=== PATIENT | male | born 1935 | race Caucasian/White ===

== ENCOUNTER → 2016-10-23 | Outpatient (CLI) | payer BC ==
[~2016-10-23] MED LIST: DUTA0.5C PO; METH-1305 PO; MULT-190 PO; TAMS0.4C38 PO
[2016-10-23 10:26] LABS: BASO % 0.8 %; BASO ABS # 0.05 K/uL (0-0.2); COMPLETE YES; EOS % 2.8 %; HEMATOCRIT 41.7 % (42-52); IG% 0.3 %; LYMPH ABS # 2.37 K/uL (1.2-3.4); MEAN CELL VOLUME 93.5 fL (80-100); MEAN CORPUSCULAR HGB CONC 35.3 g/dl (32-36); MEAN PLATELET VOLUME 9.4 fL (7.4-10.4); MONO % 9.5 %; NEUT % 47.6 %; PLATELET COUNT 204 K/uL (130-400); RED BLOOD COUNT 4.46 M/uL (4.7-6.1); WHITE BLOOD COUNT 6.08 K/uL (4.8-10.8)
[2016-10-23 10:40] LABS: ESTIMATED AVERAGE GLUCOSE 117 mg/dl; HA1C FLAG Normal (Normal)
[2016-10-23 11:01] LABS: BLOOD UREA NITROGEN 19 mg/dl (7-18); BUN/CREATININE RATIO 19.9 (10-20); CALCIUM 8.8 mg/dl (8.5-10.1); CARBON DIOXIDE 28 mmol/L (21-32); CHLORIDE 109 mmol/L (98-107); CREATININE 0.94 mg/dl (0.60-1.40); GLUCOSE 102 mg/dl (70-99); POTASSIUM 3.9 mmol/L (3.5-5.1); SODIUM 144 mmol/L (136-145)
[2016-10-23 11:13] LABS: CHOLESTEROL 188 mg/dl (0-200); CHOLESTEROL/HDL RATIO 5.1; HDL CHOLESTEROL 37 mg/dl; LDL CHOLESTEROL CALCULATED 105 mg/dl; TRIGLYCERIDES 231 mg/dl (0-150); VERY LOW DENSITY LIPOPROT CALC 46 mg/dl
--- NOTE | 2016-11-09 09:37 | CODING QUERY MEDICAL NECESSITY ---
SUPPORTING DIAGNOSIS NEEDED Dr. Saucedo, A supporting diagnosis is required for the test/procedure performed on this patient in order for us to be reimbursed by the patient's insurance. Please provide a supporting diagnosis for the following test/procedure listed below next to the test name along with your signature. *If there is no additional diagnosis for this patient that would support the following test/procedure please document that below next to the test/procedure. Test(s)/Procedure(s) that require a supporting diagnosis: * [id number] GLYCATED HEMOGLOBIN DIAGNOSIS: DATE OF SERVICE: 10/23/16 Provider Signature: Date: Thank you Hossein Osorio [facility] Information Management Once completed, please kindly fax back to [phone] For questions please call [phone]
== END | disposition home or self-care (01) ==
LOC: C.LAB 09:17
PROVIDERS: ATTEND Internal Medicine
DX: E78.00 Pure hypercholesterolemia, unspecified (principal); R73.9 Hyperglycemia, unspecified

== ENCOUNTER → 2017-03-08 | Outpatient (CLI) | payer BC | END | disposition home or self-care (01) | LOC: C.LAB1850 16:12 | PROVIDERS: ATTEND Urology | DX: N40.1 Benign prostatic hyperplasia with lower urinary tract symptoms (principal) ==

== ENCOUNTER 2018-10-14 10:46 | Observation (INO) ==
--- NOTE | 2018-10-02 12:23 | PAT Medication Instructions ---
Medication Instructions Date of Service October 02, 2018 Home Medications dutasteride 0.5 mg PO QPM methenamine hippurate 1 g PO QPM tamsulosin 0.4 mg PO QPM vit C,J-Gf-agisw-lutein-zeaxan [PreserVision AREDS-2] 1 tab PO BID STOP taking 2 weeks before surgery vit C,Z-Hr-rtmph-lutein-zeaxan [PreserVision AREDS-2] 1 tab PO BID Take morning of surgery NOTHING TO EAT OR DRINK AFTER MIDNIGHT Take evening before surgery dutasteride 0.5 mg PO QPM methenamine hippurate 1 g PO QPM tamsulosin 0.4 mg PO QPM Other Notes If you have any questions please call us at [phone] or [phone] or [phone] or [phone]
--- NOTE | 2018-10-02 12:26 | Anesthesiology Consultation ---
Date of Service October 02, 2018 Assessment & Plan (1) Encounter for pre-operative examination: Chart Review Chart Review: Acceptable Risk for Surgery and Patient seen in Pre Admission Testing Consults Requested none Teaching & Discussion Pre-Anesthesia Teaching/Discussion Notes: Instructed NPO after midnight before surgery, except medications with 15 cc of water. Medication instructions provided according to the PAT guidelines. ASA ASA2 Proposed Anesthesia Anesthesia Type: General Risk / Benefits Reviewed With: PT / POA / Parent / Guardian, Accepts Plan and Informed Consent Obtained History Surgery Operation Date: 10/14/18 12:10 Proposed Procedures p Transurethral Resection Prostate - Olu Givens MD Height/Weight Height: 1.73 m Weight: 72.4 kg Allergies Allergy/AdvReac Type Severity Reaction Status Date / Time No Known Allergies Allergy * Verified 10/14/18 11:12 Medications Home Medications Medication Instructions Recorded Confirmed Last Taken dutasteride 0.5 mg PO QPM 09/26/18 10/14/18 10/12/18 18:00 methenamine hippurate 1 g PO QPM 09/26/18 10/14/18 10/13/18 18:00 tamsulosin 0.4 mg PO QPM 09/26/18 10/14/18 10/13/18 18:00 vit C,Z-Xe-gdcgl-lutein-zeaxan 1 tab PO QAM 09/26/18 10/14/18 10/13/18 08:00 [PreserVision AREDS-2] NPO Date Last Intake of Fluids: 10/13/18 Time Last Intake of Fluids: 20:00 Date Last Intake of Solids: 10/13/18 Time Last Intake of Solids: 20:00 Past Medical History Medical History BPH (benign prostatic hyperplasia) Exercise / Class Metabolic Activity II 4-5 Yardwork/Stairs/Walk up hill (Walk 1-2 miles per day. Play with his dogs. Able to easily climb FOS. Denies CP or SOB. ) Past Surgical History Surgical History History of arthroscopy RIGHT KNEE History of colonoscopy History of herniorrhaphy Bilateral inguinal LEFT - 08/13/13 - MAC #4, ETT #8.0, Grade 2 View History of prostate surgery TURP Hx of cataract surgery BILATERAL S/P ORIF (open reduction internal fixation) fracture RIGHT ANKLE 06/18/12 - ETT #7.5 Past Anesthesia History No Hx of Anesthesia Complications and No Family Hx of Anesthesia Complications History of PONV No Hx of PONV and No Hx of Motion Sickness Social History Smoking Status: Never smoker Smoking cigarettes per day: 0 Do You Dip or Chew Tobacco: No Hx Alcohol Use: No Alcohol Intake Frequency Comment: 0 Hx Substance Use: No substance use type: does not use Review of Systems Patient denies chest pain, shortness of breath, dyspnea on exertion, reflux, cough, wheezing, palpitations. +Joint Pain (Left Hip, Hands) Respiratory: no dyspnea Cardiovascular: no chest pain and no dyspnea on exertion Gastrointestinal: no nausea and no vomiting Physical Exam Vital Signs BP: 116/65 P: 69 R: 16 T: 97.8 SPO2: 97% on RA ENMT Mouth: no TMJ abnormality and no TMJ clicking Thyromental Distance: > or= 3.5 Finger Breadths (4) Mallampati Class: II Neck normal visual inspection and trachea midline; neck extension not limited Respiratory normal respiratory effort Auscultation: lungs clear to auscultation bilaterally Cardiovascular Rate/Rhythm: regular rate and regular rhythm Neurologic moves all extremities Psychiatric Orientation: alert and oriented x 3 Testing Laboratory Results 10/02/18 12:56 10/02/18 12:56 10/02/18 12:56 Blood Type O Positive Antibody Screen NEGATIVE Electrocardiogram Date: 10/02/18 Findings: + NSR @ (62) Left anterior fascicular block Right bundle branch block When compared with ECG of 08/07/13, T wave inversion no longer evident in inferior leads. Chest X-Ray Date: 10/02/18 Findings: + NAD FINDINGS: Cardiac mediastinal and hilar silhouettes are within normal limits. No pneumothorax, pleural effusion, focal airspace consolidation or overt pulmonary edema. Bones of the chest appear grossly intact. IMPRESSION: No acute process. Cervical Spine Date: 08/18/18 FINDINGS: The prevertebral soft tissues are normal. There is 4.5 mm of retrolisthesis of C5 on C6. There is marked C5-6 disc space narrowing. Right- sided neck calcifications are likely atherosclerotic. There are nonspecific calcifications in the left subareolar mandibular region. IMPRESSION: 1. No acute fractures 2. 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
--- NOTE | 2018-10-02 13:26 | XRay Report ---
XR chest Pre-admission PA/Lat HISTORY: 82 years-old Male pat preoperative exam. No acute chest complaints COMPARISON: Chest radiograph 09/11/2010 TECHNIQUE: PA and lateral views of the chest FINDINGS: Cardiac mediastinal and hilar silhouettes are within normal limits. No pneumothorax, pleural effusion , focal airspace consolidation or overt pulmonary edema. Bones of the chest appear grossly intact. IMPRESSION: No acute process. The above report was generated using voice recognition software. It may contain grammatical, syntax o r spelling errors. Electronically signed by: Geovany Orozco M.D. 10/02/2018 1:24 PM
[2018-10-02 14:01] LABS: Basophils # (auto) 0.03 K/uL (0-0.2); Basophils % (auto) 0.6 %; Eosinophils # (auto) 0.23 K/uL (0-0.5); Eosinophils % (auto) 4.5 %; Hematocrit (blood only) 38.6 % (42-52); Hemoglobin 13.7 g/dL (14.0-18.0); Immature Granulocytes # (auto) 0.01 K/uL (0.00-0.02); Immature Granulocytes % (auto) 0.2 %; Lymphocytes # (auto) 1.83 K/uL (1.2-3.4); Lymphocytes % (auto) 36.1 %; Mean Corpuscular Hgb Conc 35.5 g/dL (32-36); Mean Platelet Volume 9.5 fL (7.4-10.4); Monocytes # (auto) 0.42 K/uL (0.11-0.59); Monocytes % (auto) 8.3 %; Neutrophils # (auto) 2.55 K/uL (1.4-6.5); Neutrophils % (auto) 50.3 %; Platelet Count 194 K/uL (130-400); RDW Standard Deviation 44.2 fL (36.4-46.3); Red Blood Count 4.15 M/uL (4.7-6.1); White Blood Count 5.07 K/uL (4.8-10.8)
[2018-10-02 14:16] LABS: BUN Creatinine Ratio 23.5 (10-20); Calcium 9.1 mg/dl (8.5-10.1); Creatinine Clr Calc Pharmacy 58.2 ml/min; Est GFR (African American) 87.7; Est GFR (Non-African American) 75.7; Potassium 3.9 mmol/L (3.5-5.1)
[~2018-10-14 10:46] MED LIST changes: -DUTA0.5C PO; +GENTAMICIN SULFATE 80 MG in DEXTROSE 5% 100 ML IV SCH; +LR 15ML/HR IV SCH; -METH-1305 PO; +MIDAZOLAM HCL 1 MG/ML 2ML VIAL ONE; -MULT-190 PO; -TAMS0.4C38 PO
[2018-10-14] MEDS ORDERED: fentaNYL citrate 100 MCG/2 ML VIAL ONE (10:47)
[2018-10-14] MEDS ORDERED: LIDOCAINE HCL 2% 2 ML VIAL/AMP(20MG/ML) INFIL ONE (10:47)
[2018-10-14] MEDS ORDERED: PROPOFOL IV EMULSION 10 MG/ML 20 ML VIAL IV ONE (10:47)
[2018-10-14] MEDS ORDERED: ONDANSETRON INJ 2 MG/ML 2 ML VIAL ONE (10:47)
[2018-10-14] MEDS ORDERED: PHENYLEPHRINE 100MCG/ML 5ML SYR IV PRN (11:01)
[2018-10-14] MEDS ORDERED: fentaNYL citrate 100 MCG/2 ML VIAL IV PRN (11:01)
[2018-10-14] MEDS ORDERED: HYDROmorphone INJ 1 MG/ML SYRINGE IV PRN (11:01)
[2018-10-14] MEDS ORDERED: ONDANSETRON INJ 2 MG/ML 2 ML VIAL IV PRN (11:01)
[2018-10-14] MEDS ORDERED: ePHEDrine sulfate 50 MG/ML AMP IV PRN (11:01)
[2018-10-14] MEDS ORDERED: ATROPINE SULFATE 0.1 MG/ML 10ML SYR IV PRN (11:01)
--- NOTE | 2018-10-14 12:21 | History & Physical Bridge Note ---
Date of Service October 14, 2018 History & Physical Bridge Note I have examined the patient, reviewed the History & Physical and in the interval since the performance of the History & Physical I have noted the following changes of clinical significance: no changes noted
[2018-10-14] MEDS ORDERED: ePHEDrine sulfate 50 MG/ML AMP ONE (13:08)
[2018-10-14] MEDS ORDERED: SODIUM CHLORIDE 0.9% INJ 10 ML VIAL ONE (13:08)
--- NOTE | 2018-10-14 15:06 | Post Operative Brief Note ---
Immediate Post Op Note v1 Date of Surgery October 14, 2018 Pre & Post Diagnosis Operation Date: 10/14/18 12:10 Pre-Op Diagnosis: Benign Localized Hyperplasia of Prostate Post-Op Diagnosis: Benign Localized Hyperplasia of Prostate Procedure Operation Date: 10/14/18 12:10 Actual Procedures p Transurethral Resection Prostate(Not Applicable) - Olu Givens MD Surgeon Olu Givens MD Transcription none Estimated Blood Loss 100 Findings See Below (large long obstructing gland) Drains Pritchard Catheter
[2018-10-14] MEDS ORDERED: OXYCODONE/ACETAMINOPHEN 5mg/325mg TAB PO PRN (15:17)
--- NOTE | 2018-10-14 16:16 | Anesthesiology Progress Note ---
Date of Service October 14, 2018 Anesthesia Post Procedure Vital Signs Vital Signs: Temp Pulse Pulse Resp BP BP Pulse Ox 10/14/18 16:00 36.2 C L 74 20 140/85 95 10/14/18 15:50 80 21 162/82 H 100 10/14/18 15:40 73 16 145/81 H 99 10/14/18 15:30 79 19 147/75 H 98 10/14/18 15:20 36.3 C L 84 19 150/79 H 100 10/14/18 11:17 36 C L 66 18 158/85 H 96 Transfer of Care Handoff Completed per policy Notes Mental Status: alert / awake / arousable Patient Amnestic to Procedure: Yes Nausea / Vomiting: adequately controlled Pain: adequately controlled Airway Patency, RR, SpO2: stable & adequate BP & HR: stable & adequate Hydration State: stable & adequate Anesthetic Complications: no major complications apparent and Pt Satisfied with anesthetic care
[2018-10-14] MEDS: SODIUM CHLORIDE 0.45 % 1,000 ML IV SCH (18:32)
--- NOTE | 2018-10-15 02:09 | Operative Report ---
DATE OF OPERATION: 10/14/2018 PROCEDURE PERFORMED: TURP. INDICATIONS: The patient is an 82-year-old male with a previous GreenLight laser prostatectomy 10 years ago, he had a massively enlarged prostate, has been on dutasteride. Initially, he was having residuals that apparently were relatively under control until recently did a cystoscopy again confirming he had intravesical portion of his prostate remaining and a large obstructing prostate probably over 100 grams. Recommended that we consider doing a TURP with the understanding that his prostate was quite large and we did the best I could to make sure that he was open and could empty better. DESCRIPTION OF THE PROCEDURE: The patient was taken to the cystoscopy suite where general anesthesia was administered. He had Venodyne stockings placed, prior to this was given gentamicin, he was placed in dorsal lithotomy position and prepped and draped in usual sterile fashion. Upon cystoscopy with 30 and 70 degree lens, did not see any tumors in his bladder and we placed the resectoscope and resected the median lobe initially and then resected the right lateral lobe and then placed a button to control the bleeding on the right side and could see into the bladder, but the left side was still bulging in the middle, left lateral lobe. Using the button, we began the resection on the left side just to control bleeding before using the resectoscope. However, during this procedure, there was a short and the camera was lost. Using the eye piece that was able to control some of the bleeding and do some removal of the prostate with the button. We had a new camera brought into the room. Using this, I used the button to get control of the left side as best I could. I got all the chips out of the bladder and then the procedure, there was a clear channel from the verumontanum into the bladder. Clearly, there could be more tissue that was taken but been resecting for quite a long period of time and given the malfunction of the equipment which took some time to correct approximately 5-10 minutes, I decided to terminate the procedure hoping that the resection will be sufficient to allow the patient to empty more completely. There was no significant bleeding and make sure that all the chips were removed from the bladder and the patient had a 22-Romansh Pritchard catheter with 30 mL balloon placed, was transferred to the recovery room in stable condition with clear urine. I attest to the content of the Intraoperative Record and any orders documented therein. Any exception s are noted below.
[2018-10-15] MEDS: SODIUM CHLORIDE 0.45 % 1,000 ML IV SCH (05:32)
[2018-10-15 08:15] VITALS: BP 124/72; TEMP 97.7; O2SAT 94
--- NOTE | 2018-10-15 10:36 | Urology Progress Note ---
Date of Service October 15, 2018 Assessment & Plan (1) BPH (benign prostatic hyperplasia): POD #1 s/p TURP. Patient feeling well. Some intermittent hematuria. Discussed with patient that this is a normal finding s/p TURP, encouraged to monitor after discharge and contact us if concerns or worsening. Maintain Pritchard, outpatient TOV arranged for Saturday. Will coordinate DC. Subjective 82 YO male POD #1 s/p TURP. Patient is feeling well this morning. No issues overnight. No pain. Is experiencing some intermittent hematuria. Pritchard remains patent. Review of Systems Review of Systems: All systems reviewed & are unremarkable except as noted in HPI & below Physical Exam Physical Exam: NAD. Resp effort normal. No JVD. Abd soft/nontender. : Pritchard in place, patent, draining clear yellow urine (urine in Pritchard bag is light red). Results & Data Vital Signs (Past 12 Hours) Vital Signs Temp Pulse Pulse Resp BP Pulse Ox 10/15/18 07:40 36.5 C 87 17 124/72 94 10/15/18 03:53 36.4 C L 71 20 120/69 95 10/14/18 23:50 36.3 C L 69 19 135/75 95
[2018-10-15 10:57] VITALS: PULSE 71
--- NOTE | 2018-10-16 23:39 | Discharge Summary ---
REASON FOR THE OBSERVATION: Admission status post TURP. HISTORY OF PRESENTATION: The patient is an 82-year-old male with a large prostate. He was having incomplete emptying, who presented for TURP. The TURP took over an hour and a half. The patient had a significant amount of tissue removed as well as significant amount of tissue fulgurated with a button TURP. At the end of the procedure, he had a Pritchard catheter in place, was transferred to the floor in relatively stable condition. Next morning, his urine was slightly pink but was discharged to home in stable condition with antibiotics and a Pritchard catheter in place.
== END 2018-10-15 14:38 | disposition home or self-care (01) ==
LOC: ASU 10:46 → 3W 10:46
DX: R97.20 Elevated prostate specific antigen [PSA]; I10 Essential (primary) hypertension; E78.00 Pure hypercholesterolemia, unspecified; R33.9 Retention of urine, unspecified; N40.0 Benign prostatic hyperplasia without lower urinary tract symptoms; Z79.899 Other long term (current) drug therapy